=== PATIENT | male | born 2000 | race Caucasian/White ===

== ENCOUNTER → 2023-11-16 07:30 | Outpatient (REF) | payer OTHER, SELFPAY | LOC: CLAB 07:30 | PROVIDERS: ATTENDING PHYSICIAN Otolaryngology | DX: J35.01 Chronic tonsillitis (principal) | CPT/HCPCS: 88304 ==

== ENCOUNTER 2023-11-21 21:52 | Day surgery (SDC) | payer OTHER, SELFPAY ==
[2023-11-21] VITALS (9 sets, daily range): BP systolic 137–158; BP diastolic 93–111
--- NOTE | 2023-11-21 21:14 | ED.GENMED ---
History of Present Illness
General
Chief Complaint: Post Operative Problem(s)
Source: patient and family
Time Seen by Provider: 11/21/23 20:33
History of Present Illness
History of Present Illness:
23-year-old male 5 days postop from tonsillectomy presenting to the emergency department for evaluation after 2 hours ago he started having bleeding from the postoperative sites, bleeding subsided but then started again. Mother attempted to contact
the ENT on-call but was having a difficult time getting a hold of them so decided to come to the ER for further evaluation. At time of my evaluation bleeding has since subsided. Patient endorses a tactile fever today. No medications taken prior
to arrival.
Past History
Past History
ED Past Medical History: Asthma
ED Past Surgical History: Tonsilectomy
Social History
Tobacco: Non-smoker
Alcohol: None
Drug: None
Personal: Single
Living: with family
Review of Systems
Review of Systems
All Other Systems: ROS reviewed and negative except as documented in HPI and ROS
Phy Exam
Physical Exam
Physical Exam:
GENERAL: Alert , appears uncomfortable and has a hoarse voice
EYE: conjunctiva clear
NECK: Supple, no significant adenopathy.
ENT: o/p clr, mmm. Right posterior oropharyngeal space has moderate size clot but without any active bleeding. No trismus or stridor, maintaining airway
CARDIAC: Regular rate and rhythm
LUNGS: Clear breath sounds bilaterally, no acute respiratory distress, no wheezes/rales/rhonchi
NEUROLOGICAL: Alert and oriented
SKIN: Warm and dry, skin intact.
MUSCULOSKELETAL: well perfused.
PSYCH: Normal and appropriate interaction.
Scores
Heart Failure Risk
Heart Failure Risk Score: Not Applicable
Heart Score for Chest Pain Patients
STEMI patient?: Not applicable
Withdrawal Assessment of Alcohol
Withdrawal Assessment Completed?: Not applicable
Course
Orders/Labs/Results
Orders:
Orders
11/21/23 21:30
IV Insert/Care/Rem.- Treatment PRN
11/21/23 21:35
Bupivacaine 0.25%Pf/Epinephrin [Sensorcaine-Epi 0.25%-0.0005] 30 ml .ROUTE .STK-MED ONE
11/21/23 21:36
Oxymetazoline HCl [Afrin Nasal [place]] 30 sprays .ROUTE .STK-MED ONE
11/21/23 21:49
Fentanyl Citrate/Pf [Sublimaze] 100 mcg .ROUTE .STK-MED ONE
Midazolam HCl [Versed] 2 mg .ROUTE .STK-MED ONE
11/21/23 21:51
HYDROmorphone [Dilaudid] 0.25 mg IV PACU-Q5MPRN PRN
HYDROmorphone [Dilaudid] 0.5 mg IV PACU-Q5MPRN PRN
Meperidine [Demerol] 12.5 mg IV PACU-Q5MPRN PRN
Ondansetron Injectable [Zofran] 4 mg IV PACU-ONCEPRN PRN
Prochlorperazine [Compazine] 5 mg IV PACU-ONCEPRN PRN
Notify MD As Directed
Notify physician if: for SDS patients with known or suspected sleep obstructive sleep apnea, monitor in the
PACU.
Notify MD for any apneic/desaturation episodes
O2 Therapy [RESP] Urgent
Titrate/Wean O2 to maintain O2 sat greater than (%): 92
Special Instructions: -Provide supplemental oxygen to achieve O2 sat of 92% or greater.
-After 15 min, may wean O2 and discontinue if patient is able to maintain O2 sat of 92%
or greater during recovery period.
If patient is a discharge home, without oxygen therapy, notify anestheiologist if
unable to maintain O2 SAT of 92% or greater on room air for MD clearance.
11/21/23 21:54
Dexamethasone Sod Phosphate [Decadron] 20 mg .ROUTE .STK-MED ONE
Ondansetron Injectable [Zofran] 4 mg .ROUTE .STK-MED ONE
11/21/23 21:55
Lidocaine HCl/Pf [Xylocaine-Mpf 1% Vial] 50 mg .ROUTE .STK-MED ONE
Propofol [Diprivan] 40 ml .ROUTE .STK-MED
Rocuronium Rodney [Rocuronium] 50 mg .ROUTE .STK-MED ONE
11/21/23 22:00
Normosol (Mult Electrolytes) [Normosol-R/Plasmalyte-A] 1,000 ml IV PER PROTOCOL
Normosol (Mult Electrolytes) [Normosol-R/Plasmalyte-A] 1,000 ml IV PER PROTOCOL
11/21/23 22:02
Lidocaine 1%/Epinephrine [Xylocaine 1% with Epinephrine] 20 ml .ROUTE .STK-MED ONE
11/21/23 22:06
Labetalol HCl [Trandate] 20 mg .ROUTE .STK-MED ONE
11/21/23 22:08
HYDROmorphone [Dilaudid] 0.25 mg IV PACU-Q5MPRN PRN
HYDROmorphone [Dilaudid] 0.5 mg IV PACU-Q5MPRN PRN
Meperidine [Demerol] 12.5 mg IV PACU-Q5MPRN PRN
Ondansetron Injectable [Zofran] 4 mg IV PACU-ONCEPRN PRN
Prochlorperazine [Compazine] 5 mg IV PACU-ONCEPRN PRN
11/21/23 22:09
Succinylcholine Chloride [Succinylcholine] 200 mg .ROUTE .STK-MED ONE
11/21/23 22:47
Acetaminophen [Tylenol] 650 mg .ROUTE .STK-MED ONE
Oxycodone [Roxicodone] 5 mg .ROUTE .STK-MED ONE
Vital Signs
Initial and Last Documented VS:
Initial Vital Signs
Pulse Resp BP Pulse Ox
100 22 146/100 98
11/21/23 20:29 11/21/23 20:29 11/21/23 20:29 11/21/23 20:29
Last Documented Vital Signs
Temp Pulse Resp BP Pulse Ox
97.5 F 86 12 156/101 96
11/21/23 22:37 11/21/23 22:45 11/21/23 22:45 11/21/23 22:45 11/21/23 22:45
MDM/Problems Addressed
Differential Diagnosis Includes:
Postoperative bleeding, no concern for infection, currently no signs of airway compromise
MDM/Problems Addressed:
23-year-old male presenting to the emergency department to be evaluated for postoperative bleeding from tonsillectomy site. Bleeding has since subsided since arrival to the emergency department. Will notify ENT to discuss treatment plans. Will
closely monitor patient
*Critical Care Note
Total Time (30-74mins, 75-104mins- exclusive of procedures): Not Applicable
Patient Management
Discussion with other providers: [employer] Superintendent
Escalation/DeEscalation of care consider admission/obs:
8:38 PM. ENT notified. They will come to the ER to see patient.
9:15 PM: ENT to take patient to the OR and will disposition following OR procedure.
ED Attending Note
-
Portions of this chart may have been created with voice recognition software.� Occasional wrong word or��sound alike� substitutions may have occurred due to the inherent limitations of voice recognition software.
Discharge Plan
Departure
Patient Disposition: OR
Date of Disposition: 11/21/23
Time of Disposition: 21:33
Presentation/result/management discussed w/ accepting MD/DO: Victorino
Discharge Problem:
Post-op bleeding
Interventions
Interventions:
*Risk Screen - Suicide Last Done: 11/21/23 21:51
*General Assessment Last Done: 11/21/23 21:51
*Neglect/Abuse Screening Last Done: 11/21/23 21:51
ED- Fall Risk Assessment Last Done: 11/21/23 21:51
*ED COVID-19 Vaccine History Last Done: 11/21/23 21:51
*Nursing Disposition Last Done: 11/21/23 21:51
ED-EENT Assessment Last Done: 11/21/23 21:04
ED- Pulmonary Assessment Last Done: 11/21/23 21:04
ED-Skin Assessment Last Done: 11/21/23 21:04
Discharge Date and Time
Discharge Date/Time: 11/21/23 21:52
[2023-11-21] MEDS: ROXICODONE 5 MG PO (22:57)
[2023-11-21] MEDS: TYLENOL 650 MG PO (22:58)
== END 2023-11-21 23:35 | disposition home or self-care (01) ==
LOC: SDS 21:52
PROVIDERS: ATTENDING PHYSICIAN Otolaryngology; EMERGENCY PHYSICIAN Emergency Medicine; FAMILY PHYSICIAN Family Medicine
DX: J95.830 Postprocedural hemorrhage of a respiratory system organ or structure following a respiratory system procedure (principal); Y83.8 Other surgical procedures as the cause of abnormal reaction of the patient, or of later complication, without mention of misadventure at the time of the procedure; J45.909 Unspecified asthma, uncomplicated; R13.10 Dysphagia, unspecified
CPT/HCPCS: 42962; 99285